=== PATIENT | female | born 1985 | race Caucasian/White ===

== ENCOUNTER 2018-06-06 01:10 | Inpatient (IN) | payer BC ==
[2018-06-06] MEDS ORDERED: IBUPROFEN 600 MG TAB PO (03:00)
[2018-06-06] MEDS ORDERED: MISOPROSTOL 200 MCG TAB PR ×2 (03:00→10:00)
[2018-06-06] MEDS ORDERED: OXYTOCIN 30 UNITS/LR 500 ML IV ×2 (03:00→10:00)
[2018-06-06] MEDS ORDERED: METHYLERGONOVINE 0.2 MG INJ IM ×2 (03:00→10:00)
[2018-06-06] MEDS ORDERED: CARBOPROST 250 MCG INJ IM ×2 (03:00→10:00)
[2018-06-06] MEDS ORDERED: LIDOCAINE 1% (MPF) 30 ML INJ INJ (03:00)
[2018-06-06 03:10] LABS: ADD MAN DIFF? NO
[2018-06-06 03:13] LABS: BASOPHILS % 0.4 % (0.0-2.0); EOSINOPHILS # 0.1 10^3/ul (0.0-0.5); HEMATOCRIT 41.1 % (37.0-47.0); HEMOGLOBIN 13.6 g/dl (12.0-16.0); LYMPHOCYTES # 1.9 10^3/ul (0.8-2.9); LYMPHOCYTES % 17.6 % (15.0-51.0); MEAN CORPUSCULAR HEMOGLOBIN 29.4 pg (29.0-33.0); MEAN CORPUSCULAR HGB CONC 33.1 g/dl (32.0-37.0); MEAN PLATELET VOLUME 10.2 fl (7.4-10.4); MONOCYTES % 9.7 % (0.0-11.0); NEUTROPHIL # 7.6 10^3/ul (1.6-7.5); NEUTROPHILS % 70.7 % (39.0-77.0); PLATELET COUNT 169 10^3/UL (140-415); RED BLOOD COUNT 4.62 10^6/ul (4.20-5.40); RED CELL DISTRIBUTION WIDTH 13.4 % (11.5-14.5)
[2018-06-06 03:13] LABS: WHITE BLOOD COUNT 10.8 10^3/ul (4.8-10.8)
[2018-06-06 03:32] LABS: INR 0.83; PROTIME 11.5 Sec (11.9-14.9); PT RATIO 0.9
[2018-06-06 03:33] LABS: PARTIAL THROMBOPLASTIN TIME 24.7 Sec (23.0-35.0)
[2018-06-06] MEDS ORDERED: FENTAnyl 2MCG/ML-ROPIV 0.2% 100 ML (03:46)
[2018-06-06] MEDS: LACTATED RINGER'S 1,000 ML IV* ×4 (04:33→15:27)
[2018-06-06 08:18] LABS: HEPATITIS B SURFACE ANTIGEN NEGATIVE (NEGATIVE)
[2018-06-06] MEDS ORDERED: LIDOCAINE 0.5% (SDV) 50 ML INJ (09:35)
[2018-06-06] MEDS: OXYTOCIN 30 UNITS/LR 500 ML IV ×3 (09:43→10:54)
[2018-06-06] MEDS ORDERED: DIPHENHYDRAMINE 25 MG CAP PO (10:00)
[2018-06-06] MEDS ORDERED: ONDANSETRON 4 MG INJ IV (10:00)
[2018-06-06] MEDS ORDERED: HYDROCODONE/APAP (5/325) TAB PO ×2 (10:00)
[2018-06-06] MEDS ORDERED: NACL 0.9% 3 ML SYG IV (10:00)
[2018-06-06] MEDS ORDERED: ZOLPIDEM 5 MG TAB PO (10:00)
[2018-06-06] MEDS: IBUPROFEN 600 MG TAB PO ×3 (13:50→23:43)
[2018-06-06] MEDS: BENZOCAINE 20% 56 ML SPRAY TOP (15:51)
[2018-06-06] MEDS: LANOLIN 7 GM TUBE TOP (15:51)
[2018-06-06 20:16] LABS: RAPID PLASMA REAGIN NONREACTIVE (NR)
[2018-06-06] MEDS: SENNA/DOCUSATE NA (8.6MG/50MG) TAB PO (21:41)
[2018-06-06] MEDS: CEPASTAT LOZENGE MT (23:43)
[2018-06-07] MEDS: IBUPROFEN 600 MG TAB PO ×4 (05:49→23:57)
[2018-06-07] MEDS: CEPASTAT LOZENGE MT ×3 (08:58→21:31)
[2018-06-07] MEDS: SENNA/DOCUSATE NA (8.6MG/50MG) TAB PO ×2 (08:58→21:31)
[2018-06-07 12:10] LABS: ADD MAN DIFF? NO
[2018-06-07 12:24] LABS: BASOPHILS % 0.1 % (0.0-2.0); EOSINOPHILS # 0.1 10^3/ul (0.0-0.5); EOSINOPHILS % 0.8 % (0.0-7.0); HEMATOCRIT 38.2 % (37.0-47.0); HEMOGLOBIN 12.3 g/dl (12.0-16.0); LYMPHOCYTES # 1.2 10^3/ul (0.8-2.9); LYMPHOCYTES % 8.2 % (15.0-51.0); MEAN CORPUSCULAR HEMOGLOBIN 29.4 pg (29.0-33.0); MEAN CORPUSCULAR HGB CONC 32.2 g/dl (32.0-37.0); MEAN CORPUSCULAR VOLUME 91.4 fl (82.0-101.0); MEAN PLATELET VOLUME 10.4 fl (7.4-10.4); MONOCYTE # 0.9 10^3/ul (0.3-0.9); MONOCYTES % 5.8 % (0.0-11.0); NEUTROPHIL # 12.6 10^3/ul (1.6-7.5); NEUTROPHILS % 84.4 % (39.0-77.0); PLATELET COUNT 162 10^3/UL (140-415); RED BLOOD COUNT 4.18 10^6/ul (4.20-5.40); RED CELL DISTRIBUTION WIDTH 13.6 % (11.5-14.5)
[2018-06-07] MEDS: SALINE 0.65% 45 ML NAS SPRAY NASAL ×2 (21:31→23:58)
[2018-06-08] MEDS: IBUPROFEN 600 MG TAB PO ×2 (06:00→14:51)
[2018-06-08] MEDS: SENNA/DOCUSATE NA (8.6MG/50MG) TAB PO (08:45)
[2018-06-08] MEDS: BENZOCAINE 20% 56 ML SPRAY TOP (14:52)
== END 2018-06-08 16:15 | disposition home or self-care (01) | DRG 807 ==
LOC: OBT 01:10 → L-D 01:10 → OBT 02:20 → L-D 02:20 → PP1 13:32
PROVIDERS: Obstetrics & Gynecology
PROC: 10E0XZZ Delivery of Products of Conception, External Approach (ICD-10-PCS; principal; 2018-06-06)
DX: O80 Encounter for full-term uncomplicated delivery (principal); Z37.0 Single live birth; Z3A.39 39 weeks gestation of pregnancy
CPT/HCPCS: 62319; 85025; 85610; 85730; 86592; 86850; 86900; 86901; 87340